=== PATIENT | female | born 1955 | race Two or more races ===

== ENCOUNTER 2018-11-30 23:45 | Emergency (ER) | payer OTHER ==
[~2018-11-30] VITALS: Ht 154.9 cm; Wt 46.7 kg
[2018-12-01] MEDS ORDERED: NORVASC2.5 MG (00:03)
[2018-12-01] MEDS ORDERED: COZAAR50 MG (00:03)
[2018-12-01] MEDS ORDERED: ZANTAC300 MG (00:04)
[2018-12-01] MEDS ORDERED: LEVSIN/SL0.125 MG SL (03:00)
[2018-12-01] MEDS ORDERED: PEPCID AC20 MG PO (03:00)
== END 2018-12-01 03:41 | disposition home or self-care (01) ==
LOC: ER 23:45
DX: K29.70 Gastritis, unspecified, without bleeding (principal); K92.2 Gastrointestinal hemorrhage, unspecified

== ENCOUNTER 2019-03-16 16:25 | Emergency (ER) | payer OTHER ==
[~2019-03-16] VITALS: Ht 154.9 cm; Wt 44.5 kg
[~2019-03-16 16:25] MED LIST: COZAAR50 MG; LEVSIN/SL0.125 MG SL; NORVASC2.5 MG; PEPCID AC20 MG PO; ZANTAC300 MG
== END 2019-03-16 18:21 | disposition home or self-care (01) ==
LOC: ER 16:25
DX: S13.4XXA Sprain of ligaments of cervical spine, initial encounter (principal); V49.88XA Car occupant (driver) (passenger) injured in other specified transport accidents, initial encounter; Y92.413 State road as the place of occurrence of the external cause; Y93.89 Activity, other specified; Y99.8 Other external cause status

== ENCOUNTER 2019-03-31 23:28 | Emergency (ER) | payer OTHER ==
[~2019-03-31] VITALS: Ht 154.9 cm; Wt 45.4 kg
[2019-04-01] MEDS ORDERED: FIORICET ×2 (00:11→00:12)
[2019-04-01] MEDS ORDERED: TIGAN (00:13)
[2019-04-01] MEDS ORDERED: ZANTAC (00:13)
== END 2019-04-01 04:35 | disposition home or self-care (01) ==
LOC: ER 23:28 → CPU-OBS 23:30 → ER 04-01 04:35
DX: R07.89 Other chest pain (principal); I16.0 Hypertensive urgency; I10 Essential (primary) hypertension
CPT/HCPCS: G0378; G0379; 93005

== ENCOUNTER 2019-06-03 01:49 | Emergency (ER) | payer OTHER ==
[~2019-06-03] VITALS: Ht 154.9 cm; Wt 44.0 kg
[~2019-06-03 01:49] MED LIST changes: +FIORICET; +TIGAN; +ZANTAC
[2019-06-03] MEDS ORDERED: TIGAN300 MG (02:02)
== END 2019-06-03 05:01 | disposition home or self-care (01) ==
LOC: ER 01:49 → CPU-OBS 01:56 → ER 01:56
DX: I16.0 Hypertensive urgency (principal); I10 Essential (primary) hypertension

== ENCOUNTER 2019-06-09 22:10 | Emergency (ER) | payer OTHER ==
[~2019-06-09] VITALS: Ht 154.9 cm; Wt 43.5 kg
[~2019-06-09 22:10] MED LIST changes: +TIGAN300 MG
[2019-06-09] MEDS ORDERED: SIMBASTATIN (22:28)
== END 2019-06-10 02:00 | disposition home or self-care (01) ==
LOC: ER 22:10 → CPU-OBS 22:12 → ER 22:12
DX: R07.89 Other chest pain (principal); I10 Essential (primary) hypertension

== ENCOUNTER 2019-06-15 18:24 | Emergency (ER) | payer OTHER ==
[~2019-06-15] VITALS: Ht 154.9 cm; Wt 44.5 kg
[~2019-06-15 18:24] MED LIST changes: +SIMBASTATIN
== END 2019-06-15 21:08 | disposition home or self-care (01) ==
LOC: ER 18:24
DX: M62.838 Other muscle spasm (principal)

== ENCOUNTER → 2019-07-01 | Emergency (ER) | payer OTHER ==
[~2019-07-01] VITALS: Ht 154.9 cm; Wt 44.9 kg
== END | disposition left against medical advice (07) ==
LOC: ER 02:07
DX: Z53.20 Procedure and treatment not carried out because of patient's decision for unspecified reasons (principal)

== ENCOUNTER 2020-05-10 06:43 | Emergency (ER) | payer OTHER ==
[~2020-05-10] VITALS: Ht 154.9 cm; Wt 45.4 kg
[2020-05-10] MEDS ORDERED: MAALOX MAXIMUM355 ML PO (11:53)
[2020-05-10] MEDS ORDERED: ESGIC 50-325-41 EACH PO (11:53)
== END 2020-05-10 12:23 | disposition home or self-care (01) ==
LOC: ER 06:43
DX: K29.60 Other gastritis without bleeding (principal); Z03.818 Encounter for observation for suspected exposure to other biological agents ruled out; R07.89 Other chest pain; R10.13 Epigastric pain; R51.9 Headache, unspecified

== ENCOUNTER 2020-05-26 14:06 | Emergency (ER) | payer OTHER ==
[~2020-05-26] VITALS: Ht 154.9 cm; Wt 44.9 kg
[~2020-05-26 14:06] MED LIST changes: +ESGIC 50-325-41 EACH PO; +MAALOX MAXIMUM355 ML PO
[2020-05-26] MEDS ORDERED: SIMVASTATIN10 MG PO (14:39)
[2020-05-26] MEDS ORDERED: CARDURA1 MG PO (14:40)
== END 2020-05-26 20:50 | disposition home or self-care (01) ==
LOC: ER 14:06
DX: I16.0 Hypertensive urgency (principal); I10 Essential (primary) hypertension; R42 Dizziness and giddiness; R51.9 Headache, unspecified; Z03.818 Encounter for observation for suspected exposure to other biological agents ruled out